=== PATIENT | female | born 2000 | race American Indian/Alaskan Native ===

== ENCOUNTER 2021-01-13 19:49 | Outpatient (CLI) | payer MEDICAID ==
[2021-01-13] MEDS ORDERED: LACTATED RINGERS 1,000 ML IV SCH (20:15)
[2021-01-13 20:34] VITALS: BP 100/57
[2021-01-13 20:43] LABS: Bacteria,Urine 1+ /HPF (Negative); Bilirubin,Urine NEG (Negative); Blood,Urine NEG (Negative); Color,Urine Yellow (Yellow); Mucus,Urine 1+ /HPF; Protein,Urine <15 mg/dL mg/dL (Negative); Urobilinogen,Urine < 2.0 mg/dL (<2.0)
[2021-01-13] MEDS ORDERED: TERBUTALINE 1 MG/1 ML INJ SUB-Q SCH (21:00)
== END 2021-01-13 21:21 | disposition home or self-care (01) ==
LOC: TRG 19:49 → APU 19:51 → TRG 21:21
PROVIDERS: ATTEND Obstetrics & Gynecology
DX: O26.892 Other specified pregnancy related conditions, second trimester (principal); R10.9 Unspecified abdominal pain; Z3A.24 24 weeks gestation of pregnancy
CPT/HCPCS: 59025; 81001; 87086

== ENCOUNTER 2021-04-21 06:45 | Inpatient (IN) | payer MEDICAID ==
[2021-04-21] MEDS ORDERED: LACTATED RINGERS 1,000 ML ONE (07:07)
[2021-04-21] MEDS ORDERED: LACTATED RINGERS 1,000 ML IV ONE (07:45)
[2021-04-21 08:39] LABS: Bacteria,Urine 2+ /HPF (Negative); Bilirubin,Urine NEG (Negative); Blood,Urine MOD (Negative); Color,Urine Straw (Yellow); Protein,Urine <15 mg/dL mg/dL (Negative); RBC,Urine < 1.0 /HPF (0.0-6.0); Urobilinogen,Urine < 2.0 mg/dL (<2.0)
[2021-04-21] MEDS ORDERED: metroNIDAZOLE 500 MG TAB PO ONE (09:30)
[2021-04-21] MEDS ORDERED: LIDOCAINE (2%) 20 MG/1 ML VIAL 20 ML MDV INFILTRATI SCH (09:30)
[2021-04-21 09:36] LABS: Hemoglobin 12.6 gm/dl (10.1-14.3); Mean Corpuscular HGB Conc 34 % (30-34); Mean Corpuscular Volume 83 fl (79-97); Red Blood Count 4.43 M/mm3 (3.65-5.03); Red Cell Distribution Width 13.8 % (13.2-15.2)
[2021-04-21] MEDS ORDERED: OXYTOCIN 10 UNIT/1 ML INJ IM PRN (10:00)
[2021-04-21] MEDS ORDERED: fentaNYL 100 MCG/2 ML INJ IV PRN (10:00)
[2021-04-21] MEDS ORDERED: LOPERAMIDE 2 MG CAP PO PRN (10:00)
[2021-04-21] MEDS ORDERED: METHYLERGONOVINE MALEATE 0.2 MG/ML VIAL IM PRN (10:00)
[2021-04-21] MEDS ORDERED: BUTORPHANOL 2 MG/1 ML INJ IV PRN ×2 (10:00)
[2021-04-21] MEDS ORDERED: CARBOPROST TROMETHAMINE 250 MCG/1 ML INJ IM PRN (10:00)
[2021-04-21] MEDS ORDERED: ePHEDrine SULFATE 50 MG/1 ML INJ IV PRN ×2 (10:00→20:39)
[2021-04-21] MEDS ORDERED: TERBUTALINE 1 MG/1 ML INJ SUB-Q PRN (10:00)
[2021-04-21] MEDS ORDERED: ACETAMINOPHEN 325 MG TAB PO PRN (10:00)
[2021-04-21] MEDS ORDERED: NALOXONE 0.4 MG/1 ML INJ IV PRN (10:00)
[2021-04-21] MEDS ORDERED: OXYTOCIN DRIP 30 UNITS/500 ML BAG IV SCH ×2 (10:00)
[2021-04-21] MEDS ORDERED: metroNIDAZOLE 500 MG TAB PO SCH (10:00)
[2021-04-21] MEDS ORDERED: MINERAL OIL 30 ML ORAL LIQD PO PRN (10:00)
[2021-04-21] MEDS ORDERED: miSOPROStol 200 MCG TAB PR PRN (10:00)
[2021-04-21] MEDS ORDERED: ONDANSETRON 4 MG/2 ML INJ IV PRN (10:00)
[2021-04-21 10:07] LABS: Platelet Count 160 K/mm3 (140-440)
--- NOTE | 2021-04-21 12:24 | History and Physical Report ---
History of Present Illness Date of examination: 04/21/21 Date of admission: 04/21/21 09:05 Chief complaint: My water broke History of present illness: Pt is a 21 year old -M[place]ese female primigravida KRISSY 05/02/21 presents with rupture of membranes around 7 am this morning. She reports painful contractions and denies vaginal bleeding. She has had care at [facility]'s [employer] since transfer into care at 11 wks from [facility], carrier for alpha thalassemia and sickle cell trait, and trichomonas treated on 04/09/21. She is GBS Negative. 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 (treated 04/09, no test of cure yet ) Family/Genetic History: sickle cell/trait Social history: no significant social history - Obstetrical History Expected Date of Delivery: 05/02/21 Actual Gestation: 38 Week(s) 3 Day(s) : 1 Medications and Allergies Allergies Allergy/AdvReac Type Severity Reaction Status Date / Time No Known Allergies Allergy Verified 04/21/21 07:48 Home Medications Medication Instructions Recorded Confirmed Last Taken Type One Daily Tablet 1 tab PO DAILY 04/21/21 04/21/21 2 Months Ago History ~02/19/21 Active Meds: Active Medications Acetaminophen (Acetaminophen 325 Mg Tab) 650 mg PO Q4H PRN PRN Reason: Pain, Mild (1-3) Butorphanol Tartrate (Butorphanol 2 Mg/1 Ml Inj) 1 mg IV Q2H PRN PRN Reason: Pain, Moderate(4-6) LABOR PAIN Butorphanol Tartrate (Butorphanol 2 Mg/1 Ml Inj) 2 mg IV Q2H PRN PRN Reason: Pain , Severe (7-10) Carboprost Tromethamine (Carboprost Tromethamine 250 Mcg/1 Ml Inj) 250 mcg IM ONCE PRN PRN Reason: Uterine Bleeding Ephedrine Sulfate (Ephedrine Sulfate 50 Mg/1 Ml Inj) 10 mg IV Q2M PRN PRN Reason: Hypotension Fentanyl (Fentanyl 100 Mcg/2 Ml Inj) 100 mcg IV Q2H PRN PRN Reason: Pain,Severe (7-10) LABOR PAIN Oxytocin/Sodium Chloride (Pitocin/Ns 30 Unit/500ml) 30 units in 500 mls @ 2 mls/hr IV TITR JENY; Protocol Lactated Ringer's (Lactated Ringers) 1,000 mls @ 125 mls/hr IV DIRECT JENY Oxytocin/Sodium Chloride (Pitocin/Ns 30 Unit/500ml) 30 units in 500 mls @ 40 mls/hr IV TITR JENY; Protocol Lidocaine (Lidocaine (2%) 20 Mg/1 Ml Vial 20 Ml Mdv) 20 ml INFILTRATI ONCE JENY Stop: 04/22/21 10:00 Loperamide HCl (Loperamide 2 Mg Cap) 2 mg PO ONCE PRN PRN Reason: give with Hemabate Methylergonovine Maleate (Methylergonovine Maleate 0.2 Mg/Ml Vial) 0.2 mg IM ONCE PRN PRN Reason: Uterine Bleeding Metronidazole (Metronidazole 500 Mg Tab) 2,000 mg PO ONCE JENY Stop: 04/21/21 14:00 Mineral Oil (Mineral Oil 30 Ml Oral Liqd) 30 ml PO QHS PRN PRN Reason: Constipation Misoprostol (Misoprostol 200 Mcg Tab) 800 mcg NM ONCE PRN PRN Reason: Uterine Bleeding Naloxone HCl (Naloxone 0.4 Mg/1 Ml Inj) 0.1 mg IV Q2MIN PRN PRN Reason: Res Rate </= 8 or 02 SAT < 92% Ondansetron HCl (Ondansetron 4 Mg/2 Ml Inj) 4 mg IV Q8H PRN PRN Reason: Nausea And Vomiting Oxytocin (Oxytocin 10 Unit/1 Ml Inj) 10 unit IM ONCE PRN PRN Reason: Uterine Bleeding Terbutaline Sulfate (Terbutaline 1 Mg/1 Ml Inj) 0.25 mg SUB-Q ONCE PRN PRN Reason: Hyperstimulation/Hypertonicity Review of Systems All systems: negative - Vital Signs Vital signs: Vital Signs Pulse Pulse Ox 74 99 04/21/21 06:54 04/21/21 06:54 Temp Pulse Resp BP Pulse Ox 97.3 F L 59 L 18 117/79 100 04/21/21 09:38 04/21/21 12:20 04/21/21 09:38 04/21/21 12:20 04/21/21 12:19 - Physical Exam Breasts: Positive: deferred Abdomen: Positive: soft (gravid) Uterus: Positive: enlarged Extremities: Positive: normal - Obstetrical FHR: category 2 Uterine Contraction Monitor Mode: External Cervical Dilatation: 1.5 Cervical Effacement Percentage: 60 station: -3 Uterine Contraction Pattern: Irregular Uterine Tone Measurement Phase: Resting Uterine Contraction Intensity: Moderate Results Result Diagrams: 04/21/21 07:19 Abnormal lab results 04/21/21 04/21/21 04/21/21 Range/Units 07:19 07:55 07:55 WBC 3.9 L (4.5-11.0) K/mm3 Urine pH 9.0 H (5.0-7.0) Membranes Rupture Positive A (Negative) All other labs normal. Assessment and Plan A: IUP at 38w3d SROM Trichomonas- no test of cure Sickle Cell Trait Alpha Thalassemia trait GBS Negative P: Admit to labor and delivery Flagyl 2g PO once Routine intrapartum care Closely monitor maternal and status
[2021-04-21] MEDS: LACTATED RINGERS 1,000 ML IV SCH ×3 (13:00→22:35)
[2021-04-21] MEDS ORDERED: NALOXONE 2 MG/2 ML INJ IV PRN (20:39)
--- NOTE | 2021-04-21 20:39 | Anesthesia Consultation ---
Anesthesia Consult and Med Hx Date of service: 04/21/21 - Airway Anesthetic Teeth Evaluation: Good ROM Head & Neck: Adequate Mental/Hyoid Distance: Adequate Mallampati Class: Class II Intubation Access Assessment: Probably Good - Pulmonary Exam CTA: Yes - Cardiac Exam Cardiac Exam: RRR - Pre-Operative Health Status ASA Pre-Surgery Classification: ASA2 Proposed Anesthetic Plan: Epidural - Pulmonary Hx Asthma: No COPD: No Hx Pneumonia: No - Cardiovascular System Hx Hypertension: No - Central Nervous System Hx Seizures: No Hx Psychiatric Problems: No - Endocrine Hx Renal Disease: No Hx End Stage Renal Disease: No Hx Hypothyroidism: No Hx Hyperthyroidism: No - Hematic Hx Anemia: No Hx Sickle Cell Disease: Yes (trait) - Other Systems Hx Alcohol Use: No
[2021-04-21] MEDS ORDERED: fentaNYL-BUPIV 2 MCG/ML-0.125% 200 MCG/100 ML BAG EPIDURAL SCH (21:00)
--- NOTE | 2021-04-21 23:20 | Procedure Note ---
OB Delivery Note - Delivery Date of Delivery: 04/21/21 Surgeon: LIANNE POLLARD Estimated blood loss: other (400 mL) - Vaginal Delivery presentation: vertex Delivery position: OA Intrapartum events: PROM->1hr before delivery, decreased FHT variability, mult.variable deceleratio Delivery induction: oxytocin Delivery augmentation: pitocin Delivery monitor: external FHT, external uterine Route of delivery: Delivery placenta: spontaneous Delivery cord: nuchal cord (tight; clamped x 2 and cut ) Episiotomy: none Delivery laceration: 2nd degree, other (Bilateral periurethral- hemostatic ) Delivery repair: vicryl Anesthesia: local - Infant A at 1 minute: 8 at 5 minutes: 9 Infant Gender: Male (2610g (5lb 12oz) @ 2232 pm)
[2021-04-22] MEDS ORDERED: LANOLIN/ZINC/DIMETHICONE (LANSINOH) 7 GM TP PRN ×2 (01:45)
[2021-04-22] MEDS ORDERED: MAGNESIUM HYDROXIDE (MOM) ORAL LIQD UDC PO PRN (01:45)
[2021-04-22] MEDS ORDERED: WITCH HAZEL/ GLYCERIN PAD TP PRN (01:45)
[2021-04-22] MEDS ORDERED: PROMETHAZINE 25 MG TAB PO PRN (01:45)
[2021-04-22] MEDS ORDERED: OXYTOCIN DRIP 30 UNITS/500 ML BAG IV SCH (01:45)
[2021-04-22] MEDS ORDERED: PROMETHAZINE 25 MG RECT SUPP PR PRN (01:45)
[2021-04-22] MEDS ORDERED: BENZOCAINE/MENTHOL 20/0.5% TOP SPRAY 56 GM TP PRN (01:45)
[2021-04-22] MEDS ORDERED: ONDANSETRON 4 MG/2 ML INJ IV PRN (01:45)
[2021-04-22] MEDS ORDERED: HYDROcodone/ACETAMINOPHEN 5-325 MG TAB PO PRN (01:45)
[2021-04-22] MEDS ORDERED: diphenhydrAMINE 25 MG CAP PO PRN (01:45)
[2021-04-22] MEDS ORDERED: TETANUS,DIPH,PERTUSS(ACELL) VACCINE 0.5 ML SYRINGE IM ONE (06:00)
[2021-04-22] MEDS ORDERED: MEASLES, MUMPS & RUBELLA 12,500 UNIT/0.5 ML VACCINE SUB-Q ONE (06:00)
--- NOTE | 2021-04-22 08:30 | Progress Note ---
Assessment and Plan A: PPD#1 s/p at term P: Continue with routine care with discharge anticipated for tomorrow morning. Subjective - Subjective Date of service: 04/22/21 Principal diagnosis: PPD#1 s/p at term Interval history: Patient is feeling tired but has no complaints. Reports adequate pain control, lochia decreasing and reports no issues with ambulation. Patient reports: appetite normal, voiding normally, pain well controlled, ambulating normally : doing well Objective - Vital Signs Latest vital signs: Vital Signs Temp Pulse Resp BP Pulse Ox 04/22/21 05:14 98.4 F 64 18 101/48 98 04/22/21 00:48 98.0 F 75 115/69 100 04/22/21 00:15 98.3 F 113 H 109/56 04/22/21 00:08 83 99 04/22/21 00:03 79 100 04/21/21 23:58 74 100 04/21/21 23:53 79 99 04/21/21 23:48 75 99 04/21/21 23:45 78 112/57 04/21/21 23:43 70 99 04/21/21 23:40 79 114/58 04/21/21 23:38 99 H 99 04/21/21 23:33 93 H 98 04/21/21 23:28 95 H 100 04/21/21 23:23 73 99 04/21/21 23:18 88 100 04/21/21 23:17 90 129/62 04/21/21 23:13 104 H 99 04/21/21 23:08 83 94 04/21/21 23:03 97 H 100 04/21/21 22:58 81 100 04/21/21 22:55 80 88 04/21/21 22:53 80 100 04/21/21 22:51 98.7 F 04/21/21 22:48 79 100 04/21/21 22:45 83 84 04/21/21 22:43 85 96 04/21/21 22:38 80 100 04/21/21 22:33 82 100 04/21/21 22:28 73 98 04/21/21 22:25 86 92 04/21/21 22:23 85 100 04/21/21 22:18 90 99 04/21/21 22:13 99 H 98 04/21/21 22:08 87 98 06/28/21 22:03 86 100 04/21/21 21:59 69 87 04/21/21 21:58 77 100 04/21/21 21:53 84 99 04/21/21 21:52 79 90 04/21/21 21:48 79 100 04/21/21 21:43 99 H 100 04/21/21 21:38 82 100 04/21/21 21:33 97 H 98 04/21/21 21:28 77 100 04/21/21 21:23 78 100 04/21/21 21:18 95 04/21/21 21:13 79 100 04/21/21 21:08 61 95 04/21/21 21:03 75 100 04/21/21 21:00 98.3 F 04/21/21 20:58 89 94 04/21/21 20:53 88 99 04/21/21 20:48 83 100 04/21/21 20:43 72 100 04/21/21 20:38 67 100 04/21/21 20:33 72 100 04/21/21 20:28 64 100 04/21/21 20:23 67 100 04/21/21 20:18 68 100 04/21/21 20:13 85 99 04/21/21 20:08 85 100 04/21/21 20:03 57 L 100 04/21/21 19:58 58 L 100 04/21/21 19:53 74 100 04/21/21 19:48 103 H 97 04/21/21 19:43 71 96 04/21/21 19:38 85 97 04/21/21 19:33 76 99 04/21/21 19:28 85 100 04/21/21 19:25 73 92 04/21/21 19:23 76 100 04/21/21 19:18 89 100 04/21/21 19:13 61 100 04/21/21 19:08 73 100 04/21/21 19:03 71 100 04/21/21 18:58 90 100 04/21/21 18:53 107 H 100 04/21/21 18:48 71 100 04/21/21 18:43 59 L 100 04/21/21 18:38 62 100 04/21/21 18:33 65 100 04/21/21 18:28 91 H 100 04/21/21 18:23 68 100 04/21/21 18:18 63 100 04/21/21 18:13 67 100 04/21/21 18:08 74 100 04/21/21 18:03 104 H 100 04/21/21 17:58 108 H 99 04/21/21 17:53 68 100 04/21/21 17:49 86 80 L 04/21/21 17:48 60 99 04/21/21 17:43 64 84 04/21/21 17:41 75 122/81 04/21/21 17:38 58 L 100 04/21/21 17:33 58 L 100 04/21/21 17:28 65 94 04/21/21 17:24 66 93 04/21/21 17:23 67 100 04/21/21 17:18 75 99 04/21/21 17:10 56 L 99 04/21/21 17:05 92 H 86 04/21/21 17:04 55 L 93 04/21/21 17:00 64 113/64 99 04/21/21 16:55 57 L 97 04/21/21 16:52 56 L 94 04/21/21 16:50 59 L 97 04/21/21 16:45 84 96 04/21/21 16:40 89 95 04/21/21 16:37 59 L 93 04/21/21 16:35 55 L 99 04/21/21 16:30 83 100 04/21/21 16:25 73 98 04/21/21 16:21 58 L 92 04/21/21 16:20 58 L 98/58 96 04/21/21 16:15 93 H 99 04/21/21 16:05 63 100 04/21/21 16:00 82 99 04/21/21 15:55 60 98 04/21/21 15:53 64 91 04/21/21 15:50 64 99 04/21/21 15:45 68 99 04/21/21 15:41 59 L 108/74 04/21/21 15:40 83 98 04/21/21 15:35 80 100 04/21/21 15:30 69 98 04/21/21 15:25 73 87 04/21/21 15:20 72 98 04/21/21 15:15 66 98 04/21/21 15:10 60 99 04/21/21 15:05 83 95 04/21/21 15:00 68 125/84 98 04/21/21 14:55 69 100 04/21/21 14:50 84 97 04/21/21 14:45 73 99 04/21/21 14:40 104 H 98 04/21/21 14:35 104 H 97 04/21/21 14:31 65 79 L 04/21/21 14:30 70 98 04/21/21 14:25 100 04/21/21 14:20 73 110/74 04/21/21 14:19 69 98 04/21/21 14:14 70 98 04/21/21 14:09 68 100 04/21/21 14:04 80 100 04/21/21 13:59 67 98 04/21/21 13:54 59 L 99 04/21/21 13:49 61 99 04/21/21 13:44 78 97 04/21/21 13:40 62 93/58 04/21/21 13:39 62 98 04/21/21 13:34 67 99 04/21/21 13:29 64 97 04/21/21 13:24 61 97 04/21/21 13:19 58 L 98 04/21/21 13:14 65 98 04/21/21 13:09 65 97 04/21/21 13:04 78 98 04/21/21 13:03 69 118/60 04/21/21 12:59 74 99 04/21/21 12:55 66 93 04/21/21 12:54 66 95 04/21/21 12:49 66 97 04/21/21 12:44 71 98 04/21/21 12:39 61 99 04/21/21 12:34 63 99 04/21/21 12:29 72 99 04/21/21 12:25 98.2 F 04/21/21 12:24 62 99 04/21/21 12:20 59 L 117/79 04/21/21 12:19 61 100 04/21/21 12:18 60 116/73 04/21/21 12:14 62 99 04/21/21 12:07 55 L 100 04/21/21 12:06 81 94 04/21/21 12:02 90 98 04/21/21 11:57 86 98 04/21/21 11:52 84 97 04/21/21 11:47 61 99 04/21/21 11:42 56 L 98 04/21/21 11:40 75 122/66 04/21/21 11:37 60 96 04/21/21 11:32 72 97 04/21/21 11:27 80 99 04/21/21 11:22 68 100 04/21/21 11:17 86 97 04/21/21 11:12 68 99 04/21/21 11:10 79 89 04/21/21 11:07 60 100 04/21/21 11:02 88 97 04/21/21 11:00 57 L 95/56 04/21/21 10:57 69 100 04/21/21 10:52 70 98 04/21/21 10:47 70 98 04/21/21 10:42 60 97 04/21/21 10:37 61 99 04/21/21 10:33 75 132/89 04/21/21 10:20 53 L 130/80 04/21/21 10:19 58 L 100 04/21/21 10:16 81 93 04/21/21 10:14 67 100 04/21/21 10:09 81 97 04/21/21 09:59 67 99 04/21/21 09:54 87 100 04/21/21 09:50 79 90 04/21/21 09:49 76 97 04/21/21 09:44 75 99 04/21/21 09:39 72 99 04/21/21 09:38 97.3 F L 18 100 04/21/21 09:34 76 99 04/21/21 09:29 72 100 Intake and Output 04/21/21 04/22/21 04/22/21 23:59 07:59 15:59 Intake Total 1463.067 300 Output Total 200 Balance 1463.067 100 Intake: IV 1463.067 Lactated Ringers 1,000 ml 1456.250 @ 125 mls/hr IV DIRECT [facility] Rx#:[id number] PITOCin/NS 30 UNIT/500ML 6.817 30 units In 500 ml @ 2 mls/hr IV TITR JENY Rx#: [id number] Intake, Free Water 300 Output: Urine 200 Void 200 Other: Total, Output Amount 200 # Voids Void 2 Estimated Blood Loss 400 - Exam Uterus: Present: firm, fundal height below umbilicus - Labs Labs: Abnormal lab results 04/21/21 04/21/21 04/21/21 Range/Units 07:19 07:55 07:55 WBC 3.9 L (4.5-11.0) K/mm3 Urine pH 9.0 H (5.0-7.0) Membranes Rupture Positive A (Negative)
--- NOTE | 2021-04-22 08:31 | Discharge Summary ---
Providers - Providers Date of Admission: 04/21/21 09:05 Date of discharge: 04/23/21 Attending physician: ENRIQUETA LUIS 04/22/21 01:45 Consult to Addiction Therapist [CONS] Routine Reason For Exam: assistance with , SNS Primary care physician: ENRIQUETA LUIS Hospitalization Reason for admission: active labor, rupture of membranes, IUP at term Delivery: Episiotomy: none Laceration: 2nd degree, other (Bilateral periurethral) Other procedures: none complications: none Discharge diagnosis: IUP at term delivered Condition at discharge: Good Disposition: DC-01 TO HOME OR SELFCARE Plan - Provider Discharge Summary Activity: no sex for 6 weeks, no heavy lifting 4 weeks, no strenuous exercise Diet: routine Instructions: routine Additional instructions: [] Smoking cessation referral if applicable(refer to patient education folder for contact #) [] Refer to [facility]'s [facility] Center Booklet Call your doctor immediately for: * Fever > 100.5 * Heavy vaginal bleeding ( >1 pad per hour) * Severe persistent headache * Shortness of breath * Reddened, hot, painful area to leg or breast * Drainage or odor from incision. * Keep incision clean and dry at all times and follow doctor's instructions regarding bathing/showering - Follow up plan Follow up: ENRIQUETA LUIS MD [Primary Care Provider] - 05/19/21
[2021-04-22 11:39] LABS: Hematocrit 29.4 % (30.3-42.9); Hemoglobin 10.2 gm/dl (10.1-14.3)
[2021-04-22] MEDS: IBUPROFEN 600 MG TAB PO SCH ×2 (14:18→23:34)
[2021-04-23] MEDS: IBUPROFEN 600 MG TAB PO SCH (05:26)
[2021-04-23 14:04] VITALS: BP 106/70
== END 2021-04-23 13:55 | disposition home or self-care (01) | DRG 775 ==
LOC: TRG 06:45 → APU 06:46 → LD 09:05 → TRG 09:05 → OB 04-22 01:18
PROVIDERS: ADMIT Obstetrics & Gynecology; ATTEND Obstetrics & Gynecology
PROC: 10E0XZZ Delivery of Products of Conception, External Approach (ICD-10-PCS; principal; 2021-04-21)
PROC: 3E033VJ Introduction of Other Hormone into Peripheral Vein, Percutaneous Approach (ICD-10-PCS; 2021-04-21)
DX: O99.02 Anemia complicating childbirth (principal); O76 Abnormality in fetal heart rate and rhythm complicating labor and delivery; Z20.822 Contact with and (suspected) exposure to COVID-19; O70.1 Second degree perineal laceration during delivery; O71.82 Other specified trauma to perineum and vulva; D57.3 Sickle-cell trait; Z83.2 Family history of diseases of the blood and blood-forming organs and certain disorders involving the immune mechanism; Z3A.38 38 weeks gestation of pregnancy; Z37.0 Single live birth; D64.9 Anemia, unspecified
CPT/HCPCS: 36415; 59025; 81001; 84112; 85014; 85018; 85027; 86592; 86850; 86900; 86901; 96360; G0378; J2405; J2590; J7120; U0003